=== PATIENT | female | born 2000 | race African-American/Black ===

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

== ENCOUNTER 2019-01-30 15:49 | Emergency (ER) | payer MEDICAID ==
[2019-01-30 16:15] LABS: BILIRUBIN,URINE NEGATIVE (NEGATIVE); GLUCOSE, URINE (UA) NEGATIVE (NEGATIVE); KETONES,URINE (UA) NEGATIVE (NEGATIVE); LEUKOCYTE ESTERASE, URINE NEGATIVE (NEGATIVE); NITRITE,URINE NEGATIVE (NEGATIVE); OCCULT BLOOD,URINE NEGATIVE (NEGATIVE); PROTEIN,URINE NEGATIVE (NEGATIVE); UROBILINOGEN,URINE 0.2 (NORMAL) E.U./dL (NORMAL)
[2019-01-30 16:22] LABS: CLARITY,URINE CLEAR (CLEAR); HCG UR QUAL NEGATIVE
[2019-01-30 16:50] LABS: BASOPHILS % (AUTO) 0.2 %; EOSINOPHILS # (AUTO) 0.2 10^3/uL (0.0-0.7); EOSINOPHILS % (AUTO) 1.8 %; HGB - HEMOGLOBIN 11.9 g/dL (12.0-16.0); LYMPHOCYTES # (AUTO) 2.7 10^3/uL (1.5-3.5); LYMPHOCYTES % (AUTO) 31.6 %; MEAN CORPUSCULAR HEMOGLOBIN 28.1 pg (27.0-31.0); MEAN CORPUSCULAR HGB CONC 32.3 g/dL (32.0-36.0); MEAN PLATELET VOLUME 9.9 fL (7.9-10.8); MONOCYTES # (AUTO) 0.8 10^3/uL (0.0-1.0); NEUTROPHILS # (AUTO) 4.9 10^3/uL (1.5-6.6); NEUTROPHILS % (AUTO) 57.1 %; PLT - PLATELET COUNT 260 10^3/uL (130-450); RED BLOOD COUNT 4.23 10^6/uL (4.20-5.40); RED CELL DISTRIBUTION WIDTH 14.2 % (12.0-15.0); WHITE BLOOD COUNT 8.7 x10^3/uL (4.8-10.8)
[2019-01-30 16:59] LABS: CREATININE 0.9 mg/dL (0.4-1.0)
--- NOTE | 2019-01-30 18:03 | Ultrasound Report ---
Reason: irreg vag bleeding Procedure Date: 01/30/2019 Accession Number: [id number] / [id number] Procedure: US - Pelvic w/Transvag+Doppler Ltd CPT Code: FULL RESULT: EXAM: PELVIC ULTRASOUND WITH DOPPLERS CLINICAL HISTORY: Irreg vag bleeding. COMPARISON: None. TECHNIQUE: Realtime transabdominal imaging performed to identify the uterus and adnexa and as an overview of other pelvic structures, followed by transvaginal imaging for better assessment of the endometrium and adnexa, with static image documentation. Color flow imaging and Doppler spectral analysis was performed to evaluate blood flow to the ovaries given vaginal bleeding and clinical concern for ovarian torsion. FINDINGS: Uterus: 7.4 x 3.3 x 4.2 cm, volume 53.5 cc. Anteverted position. Normal overall size and echotexture. Masses: None. Endometrium: 11 mm. Endometrium is heterogeneous with some internal vascularity but without a discrete mass identified by ultrasound. Cervix: Nabothian cysts are seen. Right Ovary: 3.1 x 2.7 x 3.5 cm, volume 10.5 cc. Normal echotexture. Arterial and venous blood flow are present. PSV 15 cm/sec. RI 0.5. Adnexa are unremarkable. Left Ovary: 3.1 x 2.7 x 3.5 cm, volume 15.4 cc. Normal echotexture. Arterial and venous blood flow are present. PSV 6 cm/sec. RI 0.5. Only seen on transabdominal ultrasound Adnexa are unremarkable. Free Fluid: None. Other: None. IMPRESSION: 1. Endometrium measures 11 mm in thickness without discrete focal mass identified by ultrasound. 2. Ovaries are normal in size with arterial and venous blood flow seen in both ovaries. RADIA
[2019-01-30] MEDS ORDERED: NAPROXEN 250 MG TABLET PO STA (18:13)
[2019-01-30] MEDS ORDERED: metroNIDAZOLE 250 MG TABLET PO STA (18:13)
--- NOTE | 2019-01-30 18:24 | ED Physician Documentation ---
PD HPI FEMALE - Stated complaint Stated Complaint: FEMALE - Chief complaint Chief Complaint: General - History obtained from History obtained from: Patient - History of Present Illness Timing - onset: Yesterday Timing - duration: Days (1-2) Timing - details: Abrupt onset (she had had her period for 5 days and was done, then started with spotting and some cramps yesterday again. Says the discharge is darker brown and not really blood color and has some clear discharge as well. Has had irregular periods her whole life, with onset of menarche age 13. but has been more irregular and frequent the past 6 months.) Associated symptoms: Pelvic pain (cramping mild), Urinary frequency. No: Fever, Abdominal pain, Dysuria Contributing factors: Sexually active. 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 MACHINE OPERATOR ARC: None : None HEENT: None Psych: None Musculoskeletal: None Derm: None - Past Surgical History Past Surgical History: No - Present Medications Home Medications: Ambulatory Orders Medication Instructions Recorded Confirmed metFORMIN [Glucophage] 500 mg PO BIDWM 10/30/18 10/30/18 Metronidazole 500 mg PO BID #14 tablet 01/30/19 Naproxen 500 mg PO BID #20 tablet 01/30/19 Norethindrone-Ethinyl Estrad 1 each PO DAILY #1 packet 01/30/19 [Tri-Norinyl] - Allergies Allergies/Adverse Reactions: Allergies Allergy/AdvReac Type Severity Reaction Status Date / Time No Known Drug Allergies Allergy Verified 01/30/19 15:59 - Social History Does the pt smoke?: No Smoking Status: Never smoker Does the pt drink ETOH?: No Does the pt have substance abuse?: Yes - Immunizations Immunizations are current?: Yes - POLST Patient has POLST: No PD ED PE NORMAL - Vitals Vital signs reviewed: Yes - General General: Alert and oriented X 3, No acute distress, Well developed/nourished - Neck Neck: Supple, no meningeal sign, No adenopathy - Cardiac Cardiac: RRR, No murmur - Abdomen Abdomen: Soft, Non tender - 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 The vault with some watery/slimy discharge and some dark brown cervical discharge c/w menstrual blood too. ) - Rectal Rectal: Deferred - Back Back: No CVA TTP - Derm Derm: Normal color, Warm and dry - Extremities Extremities: Normal ROM s pain, No edema, No calf tenderness / cord - Neuro Neuro: Alert and oriented X 3, No motor deficit, Normal speech Results - Vitals Vitals: Vital Signs - 24 hr 01/30/19 01/30/19 15:56 18:43 Temperature 36 C L 37.3 C Heart Rate 77 80 Respiratory 18 20 Rate Blood Pressure 140/85 H 139/91 H O2 Saturation 100 100 Oxygen O2 Source Room air - Labs Labs: Laboratory Tests 01/30/19 01/30/19 01/30/19 16:01 16:45 16:45 WBC 8.7 RBC 4.23 Hgb 11.9 L Hct 36.8 L MCV 87.0 MCH 28.1 MCHC 32.3 RDW 14.2 Plt Count 260 MPV 9.9 Neut # (Auto) 4.9 Lymph # (Auto) 2.7 [place] # (Auto) 0.8 Eos # (Auto) 0.2 Baso # (Auto) 0.0 Absolute Nucleated RBC 0.00 Nucleated RBC % 0.0 Sodium 141 Potassium 4.0 Chloride 105 Carbon Dioxide 27 Anion Gap 9.0 BUN 14 Creatinine 0.9 Estimated GFR (MDRD) 98 Glucose 85 Calcium 9.0 TSH Urine Color YELLOW Urine Clarity CLEAR Urine pH 6.0 Ur Specific [place] >=1.030 H Urine Protein NEGATIVE Urine Glucose (UA) NEGATIVE Urine Ketones NEGATIVE Urine Occult Blood NEGATIVE Urine Nitrite NEGATIVE Urine Bilirubin NEGATIVE Urine Urobilinogen 0.2 (NORMAL) Ur Leukocyte Esterase NEGATIVE Ur Microscopic Review NOT INDICATED Urine Culture Comments NOT INDICATED Urine HCG, Qual NEGATIVE 01/30/19 16:45 WBC RBC Hgb Hct MCV MCH MCHC RDW Plt Count MPV Neut # (Auto) Lymph # (Auto) [place] # (Auto) Eos # (Auto) Baso # (Auto) Absolute Nucleated RBC Nucleated RBC % Sodium Potassium Chloride Carbon Dioxide Anion Gap BUN Creatinine Estimated GFR (MDRD) Glucose Calcium TSH 1.39 Urine Color Urine Clarity Urine pH Ur Specific [place] Urine Protein Urine Glucose (UA) Urine Ketones Urine Occult Blood Urine Nitrite Urine Bilirubin Urine Urobilinogen Ur Leukocyte Esterase Ur Microscopic Review Urine Culture Comments Urine HCG, Qual - Rads (name of study) pelvic U/S Radiology: Prelim report reviewed (normal ovaries. Uterus normal with 11 mm endometrial thickness (uptodate reference says this is the borderline of normal/abnormal). ), See rad report PD MEDICAL DECISION MAKING - ED course Complexity details: reviewed results (ovaries normal. Endometrium 11 mm thickness, which is borderline of normal/abnormal. ), re-evaluated patient (clinically seems c/w BV, and the vaginal tests are not resulted at time of ready for discharge and have gotten U/S and results. ), considered differential, d/w patient Departure - Departure Disposition: 01 Home, Self Care Clinical Impression: Vaginal spotting, Bacterial vaginitis, Irregular menses Condition: Stable Record reviewed to determine appropriate education?: Yes Instructions: ED Vaginosis Bacterial Follow-Up: [facility] [Provider Group] Prescriptions: Metronidazole 500 mg PO BID #14 tablet Naproxen 500 mg PO BID #20 tablet Norethindrone-Ethinyl Estrad [Tri-Norinyl] 1 each PO DAILY #1 packet Comments: It does seem like a likely bacterial vaginitis on exam. The cultures will result in a day or so. We will call you if we need to change antibiotic treatment. Use antibiotic metronidazole twice daily for a week. Naproxen anti-inflammatory twice daily for 7 to 10 days for inflammation and cramps. Stay well-hydrated. He could start oral contraceptive daily for a month or 2 to see if that helps reset the menstrual cycling. When he first started you may notice some increased bleeding the first few days then it should taper down and go away. Follow-up with gynecology office in the next couple of weeks or so, call for an appointment. Return if worsening problems. Discharge Date/Time: 01/30/19 18:43
[2019-01-30 18:44] VITALS: BP 139/91
[2019-01-30 20:53] LABS: CANDIDA GROUP DNA NEGATIVE (NEGATIVE); CANDIDA KRUSEI DNA NEGATIVE (NEGATIVE); TRICHOMONAS VAGINALIS DNA POSITIVE (NEGATIVE)
[2019-01-30 21:41] LABS: TRICHOMONAS VAGINALIS DNA POSITIVE (NEGATIVE)
== END 2019-01-30 18:43 | disposition home or self-care (01) ==
LOC: ED 15:49
DX: N93.9 Abnormal uterine and vaginal bleeding, unspecified (principal); N76.0 Acute vaginitis; N92.6 Irregular menstruation, unspecified
CPT/HCPCS: 36415; 76830; 76856; 80048; 81003; 81025; 84443; 85025; 87481; 87491; 87591; 87661; 87801; 93976; 99284; A9270; 81001; 87086

== ENCOUNTER 2019-03-24 13:17 | Emergency (ER) | payer MEDICAID ==
[2019-03-24] MEDS ORDERED: LIDOCAINE 2%-EPI 1:100000 20 ML MDV SUBQ STA (13:32)
--- NOTE | 2019-03-24 13:52 | ED Physician Documentation ---
History of Present Illness - Stated complaint Stated Complaint: BUMP ON CHEST - Chief complaint Chief Complaint: Wound - History obtained from History obtained from: Patient, Family - History of Present Illness Timing: How many days ago (3) Pain level max: 5 Pain level now: 4 - Additonal information Additional information: L chest swelling, more pain today. worse with movement and palpation. nothing makes it better. 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 : None HEENT: None Psych: None Musculoskeletal: None Derm: None - Past Surgical History Past Surgical History: No - Present Medications Home Medications: Ambulatory Orders Medication Instructions Recorded Confirmed metFORMIN [Glucophage] 500 mg PO BIDWM 10/30/18 10/30/18 Metronidazole 500 mg PO BID #14 tablet 01/30/19 Naproxen 500 mg PO BID #20 tablet 01/30/19 Norethindrone-Ethinyl Estrad 1 each PO DAILY #1 packet 01/30/19 [Tri-Norinyl] Sulfamethox/Trimeth 800/160 1 each PO BID #14 tablet 03/24/19 [Bactrim Ds 800/160] - Allergies Allergies/Adverse Reactions: Allergies Allergy/AdvReac Type Severity Reaction Status Date / Time No Known Drug Allergies Allergy Verified 01/30/19 15:59 - Social History Does the pt smoke?: No Smoking Status: Never smoker Does the pt drink ETOH?: No Does the pt have substance abuse?: Yes - Immunizations Immunizations are current?: Yes - POLST Patient has POLST: No PD ED PE NORMAL - Vitals Vital signs reviewed: Yes - General General: Alert and oriented X 3, No acute distress - HEENT HEENT: Moist mucous membranes - Neck Neck: Supple, no meningeal sign - Cardiac Cardiac: RRR - Respiratory Respiratory: No respiratory distress, Clear bilaterally - Derm Derm: Warm and dry - Neuro Neuro: Alert and oriented X 3 - Free text exam Free text exam: 3x3cm indurated, fluctuant area to the left of the sternum. no drainage. Results - Vitals Vitals: Vital Signs - 24 hr 03/24/19 13:22 Temperature 37.2 C Heart Rate 90 Respiratory 18 Rate Blood Pressure 122/76 O2 Saturation 100 Oxygen O2 Source Room air - Labs Labs: Laboratory Tests 03/24/19 13:32 Ur Specific [place] 1.015 Urine HCG, Qual NEGATIVE Procedures - Abscess I&D (location) chest wall Preparation: Confirmed with ultrasound, Lidocaine 2 %, With epi Incision: Incised with scalpel, Purulent drainage, Irrigated, Culture obtained Other: Pt tolerated well PD MEDICAL DECISION MAKING - ED course Complexity details: reviewed results, considered differential, d/w patient ED course: Chest wall abscess. Incised and drained. Will place on Bactrim for home. She is well-appearing, nontoxic. Afebrile. Patient counseled regarding signs and symptoms for which I believe and urgent re-evaluation would be necessary. Patient with good understanding of and agreement to plan and is comfortable going home at this time This document was made in part using voice recognition software. While efforts are made to proofread this document, sound alike and grammatical errors may occur. Departure - Departure Disposition: 01 Home, Self Care Clinical Impression: Abscess Condition: Good Instructions: ED Abscess IandD Follow-Up: your,doctor in 3 days for wound check [Other] Prescriptions: Sulfamethox/Trimeth 800/160 [Bactrim Ds 800/160] 1 each PO BID #14 tablet Comments: Take all antibiotics until gone. Return if you worsen. Follow-up with your doctor in 3 days for a wound check. Continue to gently soak the area 2-3 times a day to help the infection drain.
[2019-03-24 14:07] LABS: HCG UR QUAL NEGATIVE
[2019-03-24 14:17] VITALS: BP 127/73
== END 2019-03-24 14:22 | disposition home or self-care (01) ==
LOC: ED 13:17
DX: L02.213 Cutaneous abscess of chest wall (principal)
CPT/HCPCS: 10060; 81025; 87070; 87077; 87181; 87205

== ENCOUNTER 2019-04-11 21:23 | Emergency (ER) | payer MEDICAID ==
[2019-04-11] MEDS ORDERED: BUFFERED LIDOCAINE 10 ML SYRINGE SUBQ STA (22:09)
--- NOTE | 2019-04-11 22:40 | ED Physician Documentation ---
PD HPI SKIN - Stated complaint Stated Complaint: CHEST PX - Chief complaint Chief Complaint: General - History obtained from History obtained from: Patient - History of Present Illness Timing - onset: How many days ago (3) Timing - duration: Days (3) Timing - details: Gradual onset, Still present Location: Chest Quality / character: Painful Contributing factors: Other (known sebaceous cyst) Similar symptoms before: Diagnosis (abcess/sebaceous cyst) Recently seen: Emergency Dept - Additional information Additional information: 18-year-old female who had an I&D done 2 and half weeks ago here in the emergency department, improved and seemed to resolve but now has developed swelling and tenderness to the area again. There is no redness it is not nearly as large as it was previously but the area has begin to hurt. 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 : None HEENT: None Psych: None Musculoskeletal: None Derm: None - Past Surgical History Past Surgical History: No - Present Medications Home Medications: Ambulatory Orders Medication Instructions Recorded Confirmed metFORMIN [Glucophage] 500 mg PO BIDWM 10/30/18 10/30/18 Metronidazole 500 mg PO BID #14 tablet 01/30/19 Naproxen 500 mg PO BID #20 tablet 01/30/19 Norethindrone-Ethinyl Estrad 1 each PO DAILY #1 packet 01/30/19 [Tri-Norinyl] Sulfamethox/Trimeth 800/160 1 each PO BID #14 tablet 03/24/19 [Bactrim Ds 800/160] Cephalexin [Keflex] 500 mg PO Q6H #28 capsule 04/11/19 - Allergies Allergies/Adverse Reactions: Allergies Allergy/AdvReac Type Severity Reaction Status Date / Time No Known Drug Allergies Allergy Verified 04/11/19 21:29 - Social History Does the pt smoke?: No Smoking Status: Never smoker Does the pt drink ETOH?: No Does the pt have substance abuse?: Yes Substance Use and Type: Marijuana - Immunizations Immunizations are current?: Yes - POLST Patient has POLST: No PD ED PE NORMAL - Vitals Vital signs reviewed: Yes (hypertensive ) - General General: Alert and oriented X 3, No acute distress, Well developed/nourished - HEENT HEENT: Atraumatic, PERRL, EOMI - Respiratory Respiratory: No respiratory distress, Other (on the anterior chest has an area of recent healing and looks well healed without signs of inflamation. There is fluctuance along the inferior border confirmed with ultrasound to be fluid and the area is tender. ---mildly. The area is about 2cm X1cm over the medial inferior border of the left breast. ) - Derm Derm: Normal color, Warm and dry, No rash - Extremities Extremities: No deformity, No edema - Neuro Neuro: Alert and oriented X 3, extern 2-12 intact, No motor deficit, No sensory deficit, Normal speech Eye Opening: Spontaneous Motor: Obeys Commands Verbal: Oriented GCS Score: 15 - Psych Psych: Normal mood, Normal affect Results - Vitals Vitals: Vital Signs - 24 hr 04/11/19 21:30 Temperature 37.0 C Heart Rate 90 Respiratory 16 Rate Blood Pressure 119/97 H O2 Saturation 100 Oxygen O2 Source Room air Procedures - Abscess I&D (location) chest wall Preparation: Confirmed with ultrasound, Betadine, Lidocaine 1% Incision: Incised with scalpel, Purulent drainage, Loculations broken, Irrigated, Culture obtained Other: Pt tolerated well, Dressing applied, Antibiotic prescribed PD MEDICAL DECISION MAKING - ED course Complexity details: reviewed results, re-evaluated patient, considered differential, d/w patient, d/w family ED course: 18-year-old female with a sebaceous cyst along the inferior border of the left breast has had a rupture to her cyst 2-1/2 weeks ago she had I&D done and organism was cultured and this was not sensitive to the antibiotic she was placed on. She did recover and appears well until 3 days ago. She now has swelling and tenderness there is an area of fluctuance and this is incised and drained. There is purulent drainage and this is cultured again. The procedure is much less painful to the patient this time around is the amount of inflam mation is much less. The previous culture grew sphingomonas paucimobilis not sensitive to septra and it is sensitive to keflex. Departure - Departure Disposition: 01 Home, Self Care Clinical Impression: Abscess Condition: Stable Instructions: ED Abscess IandD Follow-Up: [facility] [Provider Group] Prescriptions: Cephalexin [Keflex] 500 mg PO Q6H #28 capsule
[2019-04-11] MEDS ORDERED: CEPHALEXIN 250 MG Prepack 8 CAP BOTTLE PO STA (22:56)
[2019-04-11 23:01] VITALS: BP 130/74
== END 2019-04-11 23:07 | disposition home or self-care (01) ==
LOC: ED 21:23
DX: L02.213 Cutaneous abscess of chest wall (principal); L72.3 Sebaceous cyst
CPT/HCPCS: 10060

== ENCOUNTER 2020-04-11 11:00 | Outpatient (CLI) | payer MEDICAID ==
[2020-04-11 18:46] LABS: BASOPHILS % (AUTO) 0.3 %; EOSINOPHILS # (AUTO) 0.2 10^3/uL (0.0-0.7); EOSINOPHILS % (AUTO) 2.2 %; HGB - HEMOGLOBIN 11.8 g/dL (12.0-16.0); LYMPHOCYTES # (AUTO) 2.7 10^3/uL (1.5-3.5); LYMPHOCYTES % (AUTO) 35.1 %; MEAN CORPUSCULAR HEMOGLOBIN 28.3 pg (27.0-31.0); MEAN CORPUSCULAR HGB CONC 31.7 g/dL (32.0-36.0); MEAN CORPUSCULAR VOLUME 89.2 fL (81.0-99.0); MEAN PLATELET VOLUME 10.8 fL (7.9-10.8); MONOCYTES # (AUTO) 0.6 10^3/uL (0.0-1.0); MONOCYTES % (AUTO) 7.8 %; NEUTROPHILS # (AUTO) 4.2 10^3/uL (1.5-6.6); NEUTROPHILS % (AUTO) 54.3 %; PLT - PLATELET COUNT 296 10^3/uL (130-450); RED BLOOD COUNT 4.17 10^6/uL (4.20-5.40); RED CELL DISTRIBUTION WIDTH 14.1 % (12.0-15.0); WHITE BLOOD COUNT 7.7 x10^3/uL (4.8-10.8)
[2020-04-11 18:57] LABS: BILIRUBIN,TOTAL 0.4 mg/dL (0.2-1.0); CALCIUM 8.8 mg/dL (8.5-10.3); CREATININE 0.8 mg/dL (0.4-1.0)
== END 2020-04-11 23:59 | disposition home or self-care (01) ==
LOC: LAB.N 11:00
PROVIDERS: ATTEND Family Medicine
DX: N91.2 Amenorrhea, unspecified (principal)
CPT/HCPCS: 36415; 80050; 83036

== ENCOUNTER 2020-07-19 11:37 | Outpatient (CLI) | payer MEDICAID ==
--- NOTE | 2020-07-19 13:12 | Ultrasound Report ---
PROCEDURE: Pelvic w/Transvaginal INDICATIONS: POLYCYSTIC OVARY SYNDROME TECHNIQUE: Real-time scanning was performed of the pelvic organs, with image documentation. Additional endovagi nal scanning was necessary due to incomplete visualization of the adnexal and endometrial structures by transabdominal scanning. COMPARISON: None. FINDINGS: No pathologic free abdominal or pelvic fluid. Uterus: Uterus is normal in size at 7.6 x 3.0 x 4.1 cm. Uterine volume is 50 mL. The endometrium me asures 6 mm in combined thickness. Ovaries: Right ovary measures 3.9 x 2.3 x 2.7 cm and contains greater than 12 small peripheral folli cles. Left ovary measures 4.2 x 2.5 x 2.5 cm and contains more than 12 small peripheral follicles IMPRESSION: Appearance of ovaries is supportive of a clinical diagnosis of polycystic ovary syndrome. Reviewed by: Darnell Mccarty MD on 07/19/2020 12:10 PM [facility] Approved by: Darnell Mccarty MD on 07/19/2020 12:10 PM [facility] Station ID: [id number]
== END 2020-07-19 11:38 | disposition home or self-care (01) ==
LOC: DI 11:37
PROVIDERS: ATTEND Nurse Practitioner Obstetrics & Gynecology
DX: R93.89 Abnormal findings on diagnostic imaging of other specified body structures (principal)

== ENCOUNTER 2021-04-06 08:57 | Outpatient (CLI) | payer MEDICAID | END 2021-04-06 08:58 | disposition EMS.NT | LOC: EMS 08:57 | DX: Z03.89 Encounter for observation for other suspected diseases and conditions ruled out (principal) ==

== ENCOUNTER 2023-07-10 09:06 | Outpatient (CLI) | payer SELFPAY | END 2023-07-10 09:07 | disposition left against medical advice (07) | LOC: EMS 09:06 | DX: R51.9 Headache, unspecified (principal); M54.2 Cervicalgia; Y04.2XXA Assault by strike against or bumped into by another person, initial encounter ==

== ENCOUNTER 2023-11-19 16:58 | Outpatient (CLI) | payer MEDICAID | END 2023-11-19 23:59 | disposition critical access hospital (66) | LOC: EMS 16:58 | DX: S51.831A Puncture wound without foreign body of right forearm, initial encounter (principal); W54.0XXA Bitten by dog, initial encounter; Y92.009 Unspecified place in unspecified non-institutional (private) residence as the place of occurrence of the external cause | CPT/HCPCS: A0425; A0429; A0999 ==

== ENCOUNTER 2023-11-19 17:20 | Emergency (ER) | payer SELFPAY ==
--- NOTE | 2023-11-19 17:23 | ED Physician Documentation ---
PD HPI UPPER EXT INJURY - Stated complaint Stated Complaint: R ARM DOGBITE - History obtained from History obtained from: Patient, EMS - Additonal information Additional information: Her fully immunized Rottweiler accidentally bit her on the right forearm at home just prior to arrival. Patient was not aware of her tetanus status but it was listed on the chart as being in May 2018. She is mild pain at rest but more severe with any motion of the forearm. No other injuries. 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 : None HEENT: None Psych: None Musculoskeletal: None Derm: None - Past Surgical History Past Surgical History: No - Present Medications Home Medications: Ambulatory Orders Medication Instructions Recorded Confirmed Amox/Clav 875/125 [Augmentin] 1 each PO Q12H #10 tablet 11/19/23 Bacitracin Zinc Oint 1 applic TOP BID #1 each 11/19/23 Ibuprofen [Motrin] 800 mg PO Q8H PRN #14 tablet 11/19/23 - Allergies Allergies/Adverse Reactions: Allergies Allergy/AdvReac Type Severity Reaction Status Date / Time No Known Drug Allergies Allergy Verified 11/19/23 17:29 - Social History Does the pt smoke?: No Smoking Status: Never smoker Does the pt drink ETOH?: No Does the pt have substance abuse?: Yes - Immunizations Immunizations are current?: Yes - POLST Patient has POLST: No PD ED PE NORMAL - Vitals Vital signs reviewed: Yes - General General: Alert and oriented X 3, No acute distress - Extremities Extremities: Other (She is a few small puncture wounds about the right forearm mostly on the anterior surface, 1 more medial. She has no bony tenderness and full range of motion of the wrist. Neuro normal neurovascular function in the right hand.) - Neuro Neuro: Alert and oriented X 3 Results - Vitals Vitals: Vital Signs - 24 hr 11/19/23 17:21 Temperature 36.8 C Heart Rate 89 Respiratory 16 Rate Blood Pressure 149/112 H O2 Saturation 99 Oxygen O2 Source Room air - Rads (name of study) 2 view x-ray of the right forearm demonstrates no bony injury. Relevant Findings:: Final report received, EMP independent interpretation of test PD Medical Decision Making - ED course ED course: Wounds were irrigated and dressed with bacitracin. There is no evidence of deep injury or neurovascular compromise. She was administered prophylactic Augmentin and counseled on wound care and return precautions. She declined a work note. Departure - Departure Disposition: 01 Home, Self Care Clinical Impression: Dog bite of right forearm Qualifiers: Encounter type: initial encounter Qualified Code(s): S51.851A - Open bite of right forearm, initial encounter; W54.0XXA - Bitten by dog, initial encounter Condition: Good Record reviewed to determine appropriate education?: Yes Instructions: ED Bite Dog Prescriptions: Amox/Clav 875/125 [Augmentin] 1 each PO Q12H #10 tablet Bacitracin Zinc Oint 1 applic TOP BID #1 each Ibuprofen [Motrin] 800 mg PO Q8H PRN #14 tablet PRN Reason: PAIN &/OR FEVER Comments: Note for your records that you received a tetanus shot on June 04, 2018, I sent your prescriptions electronically to the [facility] in [place]. Make sure to fill them tomorrow morning seeing get a second dose of antibiotics at that point. For wound care you can wash with soap and water in the shower and then just blot it dry. Then apply the antibiotic ointment and appropriately sized Band-Aids. Return if you develop signs of infection such as redness, swelling, drainage, increased pain or fever.
[2023-11-19 17:35] VITALS: BP 149/112; O2SAT 99
[2023-11-19] MEDS: LIDOCAINE TOPICAL 4% 50 ML BOTTLE TOP ONE (17:36)
[2023-11-19] MEDS: AMOX/CLAV 875 MG/125 MG TABLET PO STA (17:36)
[2023-11-19] MEDS: IBUPROFEN 800 MG TABLET PO STA (17:36)
--- NOTE | 2023-11-19 17:53 | XRAY Report ---
PROCEDURE: Forearm RT INDICATIONS: arm inj TECHNIQUE: 2 views of the forearm were acquired. COMPARISON: None. FINDINGS: Bones: No fractures or dislocations. No suspicious bony lesions. Soft tissues: Soft tissue laceration over wall aspect of forearm soft tissue near mid radial shaft is seen with small amount of subcutaneous emphysema. No suspicious soft tissue calcifications or masses . IMPRESSION: No acute right forearm fracture or dislocation. Forearm soft tissue laceration with subcutaneous emph ysema. No radiopaque foreign body is seen. Reviewed by: Mukesh Pang MD on 11/19/2023 5:52 PM PDT Approved by: Mukesh Pang MD on 11/19/2023 5:52 PM PDT Station ID: [id number]
[2023-11-19] MEDS: BACITRACIN ZINC OINT 1 PACKET TOP STA (18:12)
== END 2023-11-19 18:34 | disposition home or self-care (01) ==
LOC: EDUNIT# → ED 17:20
DX: S51.851A Open bite of right forearm, initial encounter (principal); W54.0XXA Bitten by dog, initial encounter; Y92.009 Unspecified place in unspecified non-institutional (private) residence as the place of occurrence of the external cause
CPT/HCPCS: 73090; 99283; 99284; A9270

== ENCOUNTER 2023-11-25 07:34 | Emergency (ER) | payer MEDICAID ==
[2023-11-25 07:48] VITALS: O2SAT 100
[2023-11-25 08:09] LABS: HCG UR QUAL NEGATIVE
[2023-11-25] MEDS: ONDANSETRON 4 MG/2 ML VIAL IVP STA (08:09)
[2023-11-25] MEDS: SODIUM CHLORIDE 0.9% 1,000 ML IV STA (08:09)
[2023-11-25] MEDS: KETOROLAC 30 MG/ML VIAL IVP STA (08:10)
[2023-11-25] MEDS: HYDROmorphone 1 MG/ML CARPUJECT IVP STA (08:10)
[2023-11-25 08:11] LABS: BASOPHILS % (AUTO) 0.2 %; EOSINOPHILS # (AUTO) 0.1 10^3/uL (0.0-0.7); EOSINOPHILS % (AUTO) 1.4 %; HCT - HEMATOCRIT 34.9 % (37.0-47.0); HGB - HEMOGLOBIN 11.1 g/dL (12.0-16.0); LYMPHOCYTES % (AUTO) 31.1 %; MEAN CORPUSCULAR HEMOGLOBIN 27.9 pg (27.0-31.0); MEAN CORPUSCULAR HGB CONC 31.8 g/dL (32.0-36.0); MEAN CORPUSCULAR VOLUME 87.7 fL (81.0-99.0); MEAN PLATELET VOLUME 9.7 fL (7.9-10.8); MONOCYTES # (AUTO) 0.5 10^3/uL (0.0-1.0); MONOCYTES % (AUTO) 7.4 %; NEUTROPHILS # (AUTO) 3.9 10^3/uL (1.5-6.6); NEUTROPHILS % (AUTO) 59.6 %; PLT - PLATELET COUNT 273 10^3/uL (130-450); RED BLOOD COUNT 3.98 10^6/uL (4.20-5.40); RED CELL DISTRIBUTION WIDTH 14.6 % (12.0-15.0); WHITE BLOOD COUNT 6.5 x10^3/uL (4.8-10.8)
[2023-11-25 08:18] LABS: BILIRUBIN,URINE NEGATIVE (NEGATIVE); GLUCOSE, URINE (UA) NEGATIVE (NEGATIVE); KETONES,URINE (UA) NEGATIVE (NEGATIVE); LEUKOCYTE ESTERASE, URINE NEGATIVE (NEGATIVE); NITRITE,URINE NEGATIVE (NEGATIVE); OCCULT BLOOD,URINE LARGE (NEGATIVE); PROTEIN,URINE 30 mg/dL (NEGATIVE); UROBILINOGEN,URINE 0.2 (NORMAL) E.U./dL (NORMAL)
[2023-11-25 08:20] LABS: CLARITY,URINE BLOODY (CLEAR)
--- NOTE | 2023-11-25 08:21 | ED Physician Documentation ---
History of Present Illness - Stated complaint Stated Complaint: CROWE,ADB PX - Chief complaint Chief Complaint: Abd Pain - History obtained from History obtained from: Patient - Additonal information Additional information: The pt comes to the ED with CC of low abdominal pain and headache for the past 3 days. She states the abdominal pain started first, and that she had some vomiting and diarrhea with it initially. She then developed a frontal headache along with the GI sx. The pt denies any neurological symptoms. No current nausea. The pt denies head injury. No h/o abdominal surgery. No dysuria. Pt is on her period now, and states they are irregular. No fevers/chills. No other complaints at this time. 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 : None HEENT: None Psych: None Musculoskeletal: None Derm: None - Past Surgical History Past Surgical History: No - Present Medications Home Medications: Ambulatory Orders Medication Instructions Recorded Confirmed Amox/Clav 875/125 [Augmentin] 1 each PO Q12H #10 tablet 11/19/23 Bacitracin Zinc Oint 1 applic TOP BID #1 each 11/19/23 Ibuprofen [Motrin] 800 mg PO Q8H PRN #14 tablet 11/19/23 HYDROcod/ACETAM 5/325 [[place] 5/325] 1 - 2 tablet PO Q6H PRN #7 tablet 11/25/23 - Allergies Allergies/Adverse Reactions: Allergies Allergy/AdvReac Type Severity Reaction Status Date / Time No Known Drug Allergies Allergy Verified 11/19/23 17:29 - Social History Does the pt smoke?: No Smoking Status: Never smoker Does the pt drink ETOH?: No Does the pt have substance abuse?: Yes - Immunizations Immunizations are current?: Yes - POLST Patient has POLST: No PD ED PE NORMAL - Vitals Vital signs reviewed: Yes - General General: Alert and oriented X 3, No acute distress, Well developed/nourished - HEENT HEENT: Atraumatic, PERRL, EOMI, Moist mucous membranes - Neck Neck: Supple, no meningeal sign - Cardiac Cardiac: RRR, No murmur - Respiratory Respiratory: No respiratory distress, Clear bilaterally - Abdomen Abdomen: Soft, Non distended, Other (Moderate TTP suprapubic area, mild TTP RLQ. No rebound or guarding) - Back Back: No CVA TTP - Derm Derm: Normal color, Warm and dry, No rash - Extremities Extremities: No deformity, No edema - Neuro Neuro: Alert and oriented X 3 - Psych Psych: Normal mood, Normal affect Results - Vitals Vitals: Oxygen O2 Source Room air - Labs Labs: Laboratory Tests 11/25/23 11/25/23 11/25/23 07:43 08:03 08:03 WBC 6.5 RBC 3.98 L Hgb 11.1 L Hct 34.9 L MCV 87.7 MCH 27.9 MCHC 31.8 L RDW 14.6 Plt Count 273 MPV 9.7 Neut # (Auto) 3.9 Lymph # (Auto) 2.0 [place] # (Auto) 0.5 Eos # (Auto) 0.1 Baso # (Auto) 0.0 Absolute Nucleated RBC 0.00 Nucleated RBC % 0.0 Sodium 139 Potassium 3.7 Chloride 108 Carbon Dioxide 25 Anion Gap 6.0 BUN 11 Creatinine 0.8 Estimated GFR (MDRD) 107 Glucose 99 Calcium 9.1 Total Bilirubin 0.2 AST 12 ALT 15 Alkaline Phosphatase 56 Total Protein 7.4 Albumin 3.9 Globulin 3.5 Albumin/Globulin Ratio 1.1 Lipase 31 Urine Color RED/BLOODY Urine Clarity BLOODY Urine pH 6.0 Ur Specific [place] 1.025 Urine Protein 30 H Urine Glucose (UA) NEGATIVE Urine Ketones NEGATIVE Urine Occult Blood LARGE H Urine Nitrite NEGATIVE Urine Bilirubin NEGATIVE Urine Urobilinogen 0.2 (NORMAL) Ur Leukocyte Esterase NEGATIVE Urine RBC TNTC H Urine WBC 0-3 Ur Squamous Epith Cells FEW Squamous Urine Bacteria Few Ur Microscopic Review INDICATED Urine Culture Comments NOT INDICATED Urine HCG, Qual NEGATIVE - Rads (name of study) CT abd/pelvis Relevant Findings:: Final report received, See rad report (cystic R ovary, nL appendix) PD Medical Decision Making - ED course Complexity details: reviewed results, re-evaluated patient, considered differential, d/w patient ED course: The pt was worked up with labs and UA, which were unremarkable. She was treated symptomatically with IV fluids, Zofran, Toradol, and Dilaudid. CT was neg for appendicitis, but showed cystic R ovary. The pt was feeling better and stable for d/c home. We have discussed the findings and the need for follow-up, as well as the usual indications for return. Departure - Departure Disposition: 01 Home, Self Care Clinical Impression: Cyst of ovary Qualifiers: Laterality: right Qualified Code(s): N83.201 - Unspecified ovarian cyst, right side Headache Qualifiers: Headache type: unspecified Headache chronicity pattern: acute headache Intractability: not intractable Qualified Code(s): R51.9 - Headache, unspecified Condition: Stable Instructions: ED Cephalgia Unspecified, ED Cyst Ovarian Follow-Up: Alfredo Thomson MD [Provider Admit Priv/Credential] - Prescriptions: HYDROcod/ACETAM 5/325 [[place] 5/325] 1 - 2 tablet PO Q6H PRN #7 tablet PRN Reason: Pain Comments: Your CT shows an ovarian cyst on the right, and this is probably the cause of your pain. Your appendix looks good. 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 A prescription for pain medication has been electronically transmitted to the [facility] pharmacy in [place] for you. Forms: PCP List Discharge Date/Time: 11/25/23 11:33
[2023-11-25 08:28] LABS: ALBUMIN 3.9 g/dL (3.2-5.5); ALBUMIN/GLOBULIN RATIO 1.1 (1.0-2.2); BILIRUBIN,TOTAL 0.2 mg/dL (0.2-1.0); CALCIUM 9.1 mg/dL (8.5-10.3); CREATININE 0.8 mg/dL (0.6-1.3); POTASSIUM 3.7 mmol/L (3.5-4.5); TOTAL PROTEIN 7.4 g/dL (6.4-8.9)
[2023-11-25 08:30] LABS: BACTERIA,URINE Few /HPF (None Seen); RBC,URINE TNTC /HPF (0-5); SQUAMOUS EPITHELIAL CELL,UR FEW Squamous (<= Few); WBC,URINE 0-3 /HPF (0-5)
[2023-11-25] MEDS ORDERED: iohexoL-300 100 ML VIAL ONE (08:47)
[2023-11-25] MEDS: iohexoL-300 100 ML VIAL IVP ONE (09:12)
--- NOTE | 2023-11-25 09:51 | CT Report ---
PROCEDURE: Abdomen/Pelvis W INDICATIONS: RLQ and suprapubic pain CONTRAST: 100ml omni 300 TECHNIQUE: After the administration of intravenous contrast, a CT scan of the abdomen and pelvis was performed. Images were recorded and evaluated at appropriate window settings. Reformats: coronal and sagittal. F or radiation dose reduction, the following was used: automated exposure control, adjustment of mA and /or kV according to patient size. COMPARISON: None. FINDINGS: Image quality: Diagnostic. Lower chest: Unremarkable. Liver: No solid mass. Gallbladder: No radiopaque stones or wall thickening. Biliary tree: No intrahepatic or extrahepatic dilation, accounting for age. Spleen: No splenomegaly. Pancreas: No pancreatic ductal dilation. Adrenals: No adrenal nodule. Kidneys and ureters: No hydronephrosis. No renal cystic lesion which requires follow up. No solid mas s. Stomach, bowel and peritoneum: The colon is decompressed. There is a question of possible wall edema throughout versus decompressed status. Recommend clinical correlation. No pathologic free fluid. Norm al appendix. Lymph nodes: No central or retroperitoneal adenopathy. Vessels: No infrarenal aortic aneurysm. Patent portal vein. PELVIS Reproductive organs: Cystic right adnexa.. Bladder: No abnormal wall thickening, accounting for underdistention. Pelvic lymph nodes: No pelvic adenopathy by size criteria. Bones: No aggressive osseous abnormality. Other: No significant ventral or inguinal hernia. IMPRESSION: 1. Normal appendix. 2. Cystic right adnexa. Right lower quadrant pain may be related to the right ovary. 3. Question decompressed colon versus possible changes of brewster colitis. Recommend clinical correlation . Reviewed by: Darnell Mccarty MD on 11/25/2023 9:49 AM PDT Approved by: Darnell Mccarty MD on 11/25/2023 9:49 AM PDT Station ID: [id number]
[2023-11-25 11:36] VITALS: BP 137/93
== END 2023-11-25 11:33 | disposition home or self-care (01) ==
LOC: ED 07:34
DX: N83.201 Unspecified ovarian cyst, right side (principal); R51.9 Headache, unspecified; Z79.899 Other long term (current) drug therapy
CPT/HCPCS: 36415; 74177; 80053; 81001; 81025; 83690; 85025; 96374; 96375; 99284; J1170; Q9967; 81003; 87086

== ENCOUNTER 2023-12-09 17:23 | Emergency (ER) | payer MEDICAID ==
--- NOTE | 2023-12-09 17:35 | ED Physician Documentation ---
PD HPI HEADACHE - Stated complaint Stated Complaint: CROWE - Chief complaint Chief Complaint: Neuro - History obtained from History obtained from: Patient - Additional information Additional information: About a week and a half ago she started developing headaches. There are intermittent bitemporal headaches that often awaken her from sleep. Then last about 30 to 45 minutes. She is under a lot of stress and that may be contributing. No change or significant use of caffeine. She has been taking ibuprofen and some leftover hydrocodone that has been helpful. Denies fevers. No possibility of . 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 : None HEENT: None Psych: None Musculoskeletal: None Derm: None - Past Surgical History Past Surgical History: No - Present Medications Home Medications: Ambulatory Orders Medication Instructions Recorded Confirmed Amox/Clav 875/125 [Augmentin] 1 each PO Q12H #10 tablet 11/19/23 Bacitracin Zinc Oint 1 applic TOP BID #1 each 11/19/23 Ibuprofen [Motrin] 800 mg PO Q8H PRN #14 tablet 11/19/23 HYDROcod/ACETAM 5/325 [[place] 5/325] 1 - 2 tablet PO Q6H PRN #7 tablet 11/25/23 Cyclobenzaprine [Flexeril] 10 mg PO TID PRN #20 tablet 12/09/23 - Allergies Allergies/Adverse Reactions: Allergies Allergy/AdvReac Type Severity Reaction Status Date / Time No Known Drug Allergies Allergy Verified 12/09/23 18:13 - Social History Does the pt smoke?: No Smoking Status: Never smoker Does the pt drink ETOH?: No Does the pt have substance abuse?: Yes - Immunizations Immunizations are current?: Yes - POLST Patient has POLST: No PD ED PE NORMAL - Vitals Vital signs reviewed: Yes - General General: Alert and oriented X 3, No acute distress - HEENT HEENT: PERRL, EOMI - Neck Neck: Supple, no meningeal sign, No bony TTP - Neuro Neuro: Alert and oriented X 3, 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 Her examination is normal and there is nothing in the history or physical to be suggestive of m eningitis. Tumor is considered very unlikely but will screen with CT. The intermittent nature would suggest against aneurysm/subarachnoid hemorrhage. Departure - Departure Disposition: Home, Self Care Clinical Impression: Headache Condition: Good Instructions: ED Cephalgia Unspecified Prescriptions: Cyclobenzaprine [Flexeril] 10 mg PO TID PRN #20 tablet PRN Reason: Spasms Comments: As discussed, I think you are having tension headaches based on your increased personal stress and the pattern of your headaches. I do not see anything abnormal on your head CT but would of course call you if the radiologist saw something of concern. Do what you can to decrease personal stress but I sent a prescription for a muscle relaxer to the [facility] in [place]. Call your doctor to arrange a follow-up appointment, make the next available appointment. In the interim, return anytime if worse or if new symptoms develop. Forms: PCP List
[2023-12-09] MEDS: HYDROcod/ACETAM 5/325 MG TABLET PO STA (19:04)
[2023-12-09 20:07] VITALS: O2SAT 99
--- NOTE | 2023-12-09 20:07 | CT Report ---
PROCEDURE: Head WO INDICATIONS: headache TECHNIQUE: Noncontrast 4.5 mm thick angled axial sections acquired from the foramen magnum to the vertex. For r adiation dose reduction, the following was used: automated exposure control, adjustment of mA and/or kV according to patient size. COMPARISON: None. FINDINGS: Image quality: Diagnostic CSF spaces: Basal cisterns are patent. Lateral ventricles are symmetric. Volume: Generally maintained Brain: No acute hemorrhage. No gross loss of romero-white differentiation Craniofacial structures: No significant paranasal sinus opacity IMPRESSION: No acute intracranial abnormality. If there is high concern, consider MRI. Reviewed by: Nazario Kinsey MD on 12/09/2023 8:06 PM PDT Approved by: Nazario Kinsey MD on 12/09/2023 8:06 PM PDT Station ID: [id number]
[2023-12-09] MEDS: CYCLOBENZAPRINE 10 MG TABLET PO STA (20:26)
[2023-12-09 20:48] VITALS: BP 130/88
== END 2023-12-09 20:15 | disposition home or self-care (01) ==
LOC: ED 17:23
DX: R51.9 Headache, unspecified (principal); E11.9 Type 2 diabetes mellitus without complications
CPT/HCPCS: 70450; 99283; 99284; A9270